=== PATIENT | female | born 1945 | race Caucasian/White ===

== ENCOUNTER → 2018-02-23 | Outpatient (CLI) | payer MEDICARE ==
--- NOTE | 2018-02-23 11:43 | XR ---
Sacrum and coccyx HISTORY: Trauma and pain 4 views of the sacrum and coccyx submitted. There is marked degenerative disc change in the visualized lumbar spine, there may be associated scol iosis. Some sacralization of L5 suspected. Bone mineralization is reduced which may limit sensitivity . Some osteoarthritic change noted in the hips. Alignment is maintained. IMPRESSION: No fracture or dislocation is evident. Additional findings above, MRI may be of benefit f or increased sensitivity as indicated.
== END | disposition home or self-care (01) ==
LOC: RADXRYALE 10:05
PROVIDERS: ATTEND Physician Assistant
DX: M53.3 Sacrococcygeal disorders, not elsewhere classified (principal)
CPT/HCPCS: 72220

== ENCOUNTER → 2022-01-14 | Outpatient (CLI) | payer MEDICARE ==
--- NOTE | 2022-01-14 10:06 | XR ---
EXAMINATION TYPE: XR abdomen 2V DATE OF EXAM: 01/14/2022 COMPARISON: NONE HISTORY: Flank pain TECHNIQUE: One view abdominal series FINDINGS: The osseous structures are intact. The bowel gas pattern is nonspecific. Scoliosis with hypertrophic and degenerative changes of the spine. Calcifications in the left upper quadrant are likely related to splenic granuloma. Bowel gas pattern nonspecific. Osteitis pubis condensans noted. Arthropathy of the hips. Soft tissue ossification along the greater trochanter of the right hip.. IMPRESSION: 1. Nonspecific abdomen.
--- NOTE | 2022-01-14 10:23 | XR ---
EXAMINATION TYPE: XR chest 2V DATE OF EXAM: 01/14/2022 COMPARISON: NONE TECHNIQUE: PA and lateral views submitted. HISTORY: Pain FINDINGS: The lungs are clear and there is no pneumothorax, pleural effusion, or focal pneumonia. Hypertrophic and degenerative changes of the spine. Atherosclerotic change aorta. Calcified granuloma left upper lobe. Arthropathy of the shoulders with diffuse osteopenia. No overt failure. IMPRESSION: 1. No acute process.
== END | disposition home or self-care (01) ==
LOC: RADXRYALE 09:19
PROVIDERS: ATTEND Physician Assistant
DX: R07.9 Chest pain, unspecified (principal); R10.9 Unspecified abdominal pain
CPT/HCPCS: 71046; 74019

== ENCOUNTER 2022-11-14 23:45 | Emergency (ER) | payer MEDICARE ==
[2022-11-15 00:03] VITALS: RESP 16; TEMP 97.9
--- NOTE | 2022-11-15 00:47 | ED ---
General Adult HPI - General Chief complaint: ENT Stated complaint: Nosebleed Time Seen by Provider: 11/15/22 00:23 Source: patient, RN notes reviewed, old records reviewed Mode of arrival: EMS Limitations: no limitations - History of Present Illness Initial comments: This is a nontoxic appearing 77-year-old female presents to the emergency room with complaints of left-sided epistaxis that started at 10:30 this evening after brushing her teeth. Patient states was unable to stop the bleeding. Does not take any blood thinners on a daily basis. States she has had some frontal and maxillary sinus pain for the past 3 days and has been using [id number] Afrin with minimal relief. Denies pain at this time. Denies any fevers. Has a history of rheumatoid arthritis and AR. -: hour(s) (2) Location: face (maxillary sinus pain with left side epistaxis) Radiation: other (left ear) Consistency: now resolved Associated Symptoms: other (epistaxis) - Related Data Allergies Allergy/AdvReac Type Severity Reaction Status Date / Time Unable to Assess Allergy Verified 11/14/22 23:55 Review of Systems ROS Statement: Those systems with pertinent positive or pertinent negative responses have been documented in the HPI. ROS Other: All systems not noted in ROS Statement are negative. Past Medical History Past Medical History: Myocardial Infarction (AR), Rheumatoid Arthritis (RA) Additional Past Medical History / Comment(s): AR 2002, History of Any Multi-Drug Resistant Organisms: None Reported Past Surgical History: Breast Surgery, Section, Hysterectomy Additional Past Surgical History / Comment(s): hysterectomy 1985, (L)breast lumpectomy Past Psychological History: No Psychological Hx Reported Smoking Status: Never smoker Past Alcohol Use History: None Reported Past Drug Use History: None Reported General Exam Limitations: no limitations General appearance: alert, in no apparent distress Head exam: Present: atraumatic, normocephalic Eye exam: Present: normal appearance. Absent: scleral icterus, conjunctival injection, periorbital swelling, periorbital tenderness ENT exam: Present: mucous membranes moist, TM's normal bilaterally, other (No active bleeding noted, no septal hematoma noted) Expanded Mouth exam: Present: tongue normal, tongue elevation. Absent: drooling, tri smus, muffled voice Neck exam: Present: full ROM. Absent: tenderness, meningismus Respiratory exam: Absent: respiratory distress, accessory muscle use Cardiovascular Exam: Present: regular rate GI/Abdominal exam: Present: soft Extremities exam: Present: normal capillary refill Neurological exam: Present: alert, oriented X3 Psychiatric exam: Present: normal affect, normal mood Skin exam: Present: warm, dry, normal color. Absent: cyanosis, diaphoretic, petechiae, pallor Course Vital Signs 11/14/22 11/15/22 23:56 02:03 Temperature 97.9 F Pulse Rate 70 65 Respiratory 16 16 Rate Blood Pressure 145/98 134/68 O2 Sat by Pulse 95 96 Oximetry Medical Decision Making - Medical Decision Making The patient presents with left-sided epistaxis since 10:30 this evening. No other abnormal bleeding. Denies any trauma. Does not take any blood thinners. States did have frontal maxillary sinus pain for the past 3 days which resolved today prior to nosebleed. Denies any fevers. CT sinuses shows evidence of maxillary ethmoid and sphenoid sinusitis. Disease mostly in the maxillary sinuses. Patient states that she does have a chronic sinusitis. Patient was able to expel blood clots with no further bleeding. She is hemodynamically stable. Labs are unremarkable. Patient denies any other abnormal bleeding. She was discharged home directed to use nasal saline, Flonase and follow-up with her primary care doctor next week. Return if any new or concerning symptoms. She is agreeable to this plan of care. Was pt. sent in by a medical professional or institution (JORDYN Sanches, RETAINING ROOM CUTTER, urgent care, hospital, or intermediate...) When possible be specific @ -No Did you speak to anyone other than the patient for history (EMS, parent, family, police, friend...)? What history was obtained from this source @ -No Did you review nursing and triage notes (agree or disagree)? Why? @ -I reviewed and agree with nursing and triage notes Were old charts reviewed (outside hosp., previous admission, EMS record, old EKG, old radiological studies, urgent care reports/EKG's, intermediate records)? Report findings @ -No old charts were reviewed Differential Diagnosis (chest pain, altered mental status, abdominal pain women, abdominal pain men, vaginal bleeding, weakness, fever, dyspnea, syncope, headache, dizziness, GI bleed, back pain, seizure, CVA, palpatations, mental health, musculoskeletal)? @ -Digital trauma, dry mucous membranes, hypertension, coagulopathy, sinusitis EKG interpreted by me (3pts min.). @ -n/a X-rays interpreted by me (1pt min.). @ -None done CT interpreted by me (1pt min.). @ -Yes no evidence of fractures, maxillary sinusitis U/S interpreted by me (1pt. min.). @ -None done What testing was considered but not performed or refused? (CT, X-rays, U/S, labs)? Why? @ -None What meds were considered but not given or refused? Why? @ -Afrin, TXA considered however the bleeding resolved; antibiotics were considered however patient's sinus pain resolved. No fevers, no concern for sinus infection. Did you discuss the management of the patient with other professionals (professionals i.e. , PA, RETAINING ROOM CUTTER, lab, RT, psych nurse, social worker school, clinical informatics strategist, teacher, enforcement officer, correctional case manager)? Give summary @ -No Was smoking cessation discussed for >3mins.? @ -No Was critical care preformed (if so, how long)? @ -No Were there social determinants of health that impacted care today? How? (Homelessness, low income, unemployed, alcoholism, drug addiction, transportation, low edu. Level, literacy, decrease access to med. care, fci, rehab)? @ -No Was there de-escalation of care discussed even if they declined (Discuss DNR or withdrawal of care, Hospice)? DNR status @ -No What co-morbidities impacted this encounter? (DM, HTN, Smoking, COPD, CAD, Cancer, CVA, ARF, Chemo, Hep., AIDS, mental health diagnosis, sleep apnea, morbid obesity)? @ -Rheumatoid arthritis, AR Was patient admitted / discharged? Hospital course, mention meds given and route, prescriptions, significant lab abnormalities, going to OR and other pertinent info. @ -Discharged Undiagnosed new problem with uncertain prognosis? @ -No Drug Therapy requiring intensive monitoring for toxicity (Heparin, Nitro, Insulin, Cardizem)? @ -No Were any procedures done? @ -No Diagnosis/symptom? @ -Epistaxis, sinusitis Acute, or Chronic, or Acute on Chronic? @ -Acute Uncomplicated (without systemic symptoms) or Complicated (systemic symptoms)? @ -Uncomplicated Side effects of treatment? @ -No Exacerbation, Progression, or Severe Exacerbation? @ -No Poses a threat to life or bodily function? How? (Chest pain, USA, AR, pneumonia, PE, COPD, DKA, ARF, appy, cholecystitis, CVA, Diverticulitis, Homicidal, Suicidal, threat to staff... and all critical care pts) @ -No - Lab Data Result diagrams: 11/15/22 00:50 11/15/22 00:50 Lab Results 11/15/22 11/15/22 11/15/22 Range/Units 00:50 00:50 00:50 WBC 8.4 (3.8-10.6) k/uL RBC 4.64 (3.80-5.40) m/uL Hgb 14.6 (11.4-16.0) gm/dL Hct 44.4 (34.0-46.0) % MCV 95.7 (80.0-100.0) fL MCH 31.5 (25.0-35.0) pg MCHC 32.9 (31.0-37.0) g/dL RDW 12.5 (11.5-15.5) % Plt Count 171 (150-450) k/uL MPV 8.0 Neutrophils % 71 % Lymphocytes % 20 % Monocytes % 4 % Eosinophils % 3 % Basophils % 1 % Neutrophils # 6.0 (1.3-7.7) k/uL Lymphocytes # 1.7 (1.0-4.8) k/uL Monocytes # 0.4 (0-1.0) k/uL Eosinophils # 0.2 (0-0.7) k/uL Basophils # 0.1 (0-0.2) k/uL PT 11.2 (9.0-12.0) sec INR 1.1 (<1.2) Sodium 141 (137-145) mmol/L Potassium 4.4 (3.5-5.1) mmol/L Chloride 106 (98-107) mmol/L Carbon Dioxide 29 (22-30) mmol/L Anion Gap 6 mmol/L BUN 32 H (7-17) mg/dL Creatinine 0.90 (0.52-1.04) mg/dL Est GFR (CKD-EPI)AfAm 71 (>60 ml/min/1.73 sqM) Est GFR (CKD-EPI)NonAf 61 (>60 ml/min/1.73 sqM) Glucose 113 H (74-99) mg/dL Calcium 8.6 (8.4-10.2) mg/dL Disposition Clinical Impression: Sinusitis, Epistaxis Disposition: HOME SELF-CARE Condition: Good Instructions (If sedation given, give patient instructions): Nosebleed (ED) Additional Instructions: Use nasal saline spray to keep membranes moist. Use Flonase spray once a day for sinusitis. Follow-up with the primary care doctor next week. Return to the emergency room with any new or concerning symptoms. Is patient prescribed a controlled substance at d/c from ED?: No Referrals: Nonstaff,Physician [Primary Care Provider] - 1-2 days Time of Disposition: 01:51
[2022-11-15 01:12] LABS: Basophils # (A) 0.1 k/uL (0-0.2); Basophils % (A) 1 %; Eosinophils # (A) 0.2 k/uL (0-0.7); Eosinophils % (A) 3 %; HCT 44.4 % (34.0-46.0); HGB 14.6 gm/dL (11.4-16.0); Lymphocytes # (A) 1.7 k/uL (1.0-4.8); Lymphocytes % (A) 20 %; MCH 31.5 pg (25.0-35.0); MCHC 32.9 g/dL (31.0-37.0); MCV 95.7 fL (80.0-100.0); Monocytes # (A) 0.4 k/uL (0-1.0); Monocytes % (A) 4 %; Neutrophils % (A) 71 %; Platelet Count 171 k/uL (150-450); RBC 4.64 m/uL (3.80-5.40); RDW 12.5 % (11.5-15.5); WBC 8.4 k/uL (3.8-10.6)
[2022-11-15 01:14] LABS: INR 1.1 (<1.2); Prothrombin Time 11.2 sec (9.0-12.0)
[2022-11-15 01:15] LABS: Calcium 8.6 mg/dL (8.4-10.2); Potassium 4.4 mmol/L (3.5-5.1)
--- NOTE | 2022-11-15 01:19 | CT ---
EXAMINATION TYPE: CT sinus wo con DATE OF EXAM: 11/15/2022 COMPARISON: None HISTORY: BILATERAL NOSE BLEED, NO INJURY, NO BLOOD THINNERS. CT DLP: 394.5 mGycm Automated exposure control for dose reduction was used. Images obtained from the mid mandible to the top of the frontal sinuses with no contrast. Visualized mandible is intact. Temporomandibular joints are intact. Zygomatic arches appear normal. T here is mucosal thickening in the maxillary sinuses. Orbital margins are intact. No evidence of retro -orbital mass. There is some minimal mucosal thickening in the ethmoid air cells. Frontal sinuses jose ear normal. Sphenoid sinus shows minimal left-sided mucosal thickening. There is normal aeration of the mastoid sinuses. There is normal aeration of the epitympanic recess b ilaterally. IMPRESSION: There is evidence for maxillary ethmoid and sphenoid sinusitis. Disease mostly in the maxillary sinus es.
[2022-11-15 03:03] VITALS: BP 134/68; PULSE 65
== END 2022-11-15 02:53 | disposition home or self-care (01) ==
LOC: EC 23:45
DX: J32.9 Chronic sinusitis, unspecified (principal); R04.0 Epistaxis; I25.2 Old myocardial infarction
CPT/HCPCS: 36415; 70486; 80048; 85025; 85610; 99283; 99284

== ENCOUNTER → 2022-12-25 | Outpatient (CLI) | payer MEDICARE ==
--- NOTE | 2022-12-25 11:34 | XR ---
EXAMINATION TYPE: XR knee complete LT DATE OF EXAM: 12/25/2022 COMPARISON: NONE HISTORY: Pain TECHNIQUE: Three views are submitted. FINDINGS: Severe arthropathy of the patellofemoral joint and medial compartment knee joint hypertrophic spurrin g. Diffuse osteopenia. Small suprapatellar bursal fluid collection.. Osseous structures are intact. No acute fracture seen. IMPRESSION: 1. Severe osteoarthritis. There is a small suprapatellar bursal fluid collection..
== END | disposition home or self-care (01) ==
LOC: RADXRYALE 10:57
PROVIDERS: ATTEND Physician Assistant
DX: M17.12 Unilateral primary osteoarthritis, left knee (principal)